=== PATIENT | male | born 1990 | race African-American/Black ===

== ENCOUNTER 2016-12-06 05:40 | Emergency (ER) | payer SELFPAY ==
[~2016-12-06] VITALS: Ht 172.7 cm; Wt 62.0 kg
[2016-12-06 05:44] VITALS: BP 155/82; PULSE 100; RESP 18; TEMP 98.2; O2SAT 97
[2016-12-06] MEDS ORDERED: DIPHTH/TETANUS/ACEL PERTUSSIS (BOOSTER) 0.5 ML VIAL/PFS IM ONE (06:00)
[2016-12-06] MEDS ORDERED: LIDOCAINE 1%/EPINEPHrine 1:100,000 SOLN 20 ML VIAL INFIL ONE (06:00)
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
--- NOTE | 2016-12-06 06:27 | PD ---
Physical Exam Date Seen by Provider: Dec 06, 2016 Time Seen by Provider: 06:26 Narrative For full history and physical examination please see previous provider's note. I was asked to repair the laceration to patient's right eyebrow. Data Data Last Documented VS Vital Signs Date Time Temp Pulse Resp B/P Pulse Ox O2 Delivery O2 Flow Rate FiO2 12/06/16 05:44 98.2 100 18 155/[address] Brain W/O Iv Contrast(Rout) (12/06/16 ) Ct Facial Bones W/O Iv Cont (12/06/16 ) Lidocai-Epi 1%-1:100,000 Inj (Xylocaine- (12/06/16 06:00) Ofri-Ali-Ycrqxx (Booster) Inj (Boostrix (12/06/16 06:00) MDM Supervised Visit with EFREN: Yes Procedures Procedure Narrative LACERATION LOCATION: Right eyebrow LENGTH: 1.5 centimeters NUMBER OF STITCHES/DENZEL: 6 stitches REPAIR: The area of the laceration was prepped with Betadine and sterilely draped. The laceration was infiltrated with 1% lidocaine with epi. The wound was copiously irrigated and explored without evidence of foreign body, tendon injury or neurovascular injury. The wound was closed using 5-0 Prolene. This was a 1 layer repair. A sterile dressing was applied. The patient was advised to keep the dressing clean and dry. Patient tolerated the procedure well. Scripts No Active Prescriptions or Reported Meds Barbara Saba Dec 06, 2016 06:27
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
[2016-12-06] MEDS ORDERED: IBUP-232 PO (08:26)
[2016-12-06] MEDS ORDERED: AMOX500C PO (08:26)
[2016-12-06 08:50] VITALS: BP 136/79
== END 2016-12-06 08:52 | disposition home or self-care (01) ==
LOC: NEPC 05:40
DX: S02.31XA Fracture of orbital floor, right side, initial encounter for closed fracture (principal); S01.111A Laceration without foreign body of right eyelid and periocular area, initial encounter; Y04.0XXA Assault by unarmed brawl or fight, initial encounter; Z23 Encounter for immunization
CPT/HCPCS: 12011; 70450; 70486; 90471; 90715

== ENCOUNTER 2016-12-13 14:06 | Emergency (ER) | payer SELFPAY ==
[~2016-12-13 14:06] MED LIST: AMOX500C PO; IBUP-232 PO
[2016-12-13 14:08] VITALS: BP 145/69; PULSE 103; RESP 12; TEMP 99.5; O2SAT 99
--- NOTE | 2016-12-13 14:50 | PD ---
Physical Exam Date Seen by Provider: Dec 13, 2016 Time Seen by Provider: 14:48 Data Data Last Documented VS Vital Signs Date Time Temp Pulse Resp B/P Pulse Ox O2 Delivery O2 Flow Rate FiO2 12/13/16 14:08 99.5 103 12 145/69 99 MDM Supervised Visit with EFREN: No Narrative Course 26 YO M requests suture removal of right eyebrow. Vitals reviewed. Seen in triage, awaiting bed placement. [place] Dec 13, 2016 14:50
--- NOTE | 2016-12-13 15:10 | PD ---
HPI Chief Complaint: Wound/Suture/Staple Re-Check Time Seen by Provider: 15:08 Travel History International Travel<30 days: No Contact w/Intl Traveler<30days: No Traveled to known affect area: No History of Present Illness HPI 26-year-old male presents to emergency department requesting stitches to be removed from his right eyebrow. Stitches to been in place since last week. Patient is unable to verify date. He denies fever, vomiting. Has no other medical complaints. No known allergies. No other modifying factors or associated signs and symptoms. PFSH Social History Alcohol Use: Yes Tobacco Use: Yes (1PPD) Substance Use: Yes (MARIJUANA) Allergies-Medications (Allergen,Severity, Reaction): Coded Allergies: No Known Allergies (Unverified , 12/13/16) Reported Meds & Prescriptions Reported Meds & Active Scripts Active Ibuprofen 600 Mg Tab 600 Mg PO Q6H PRN Amoxicillin 500 Mg Cap 500 Mg PO TID 10 Days Review of Systems Except as stated in HPI: all other systems reviewed are Neg Physical Exam Narrative GENERAL: Well-nourished, well-developed male patient, in no acute distress SKIN: Warm and dry. Laceration to right eyebrow is well approximated with sutures intact; areas without erythema, edema, drainage. No signs of infection. HEAD: Atraumatic. Normocephalic. EYES: Pupils equal and round. No scleral icterus. No injection or drainage. ENT: Mucosa pink and moist. Airway patent. NECK: Trachea midline. CARDIOVASCULAR: Regular rate. RESPIRATORY: No accessory muscle use. GASTROINTESTINAL: Flat. MUSCULOSKELETAL: No obvious deformities. No clubbing. No cyanosis. No edema. NEUROLOGICAL: Awake and alert. Oriented 3. No obvious cranial nerve deficits. Motor grossly within normal limits. Normal speech. PSYCHIATRIC: Appropriate mood and affect; insight and judgment normal. Data Data Last Documented VS Vital Signs Date Time Temp Pulse Resp B/P Pulse Ox O2 Delivery O2 Flow Rate FiO2 12/13/16 14:08 99.5 103 12 145/69 99 MDM Medical Decision Making Medical Screen Exam Complete: Yes Emergency Medical Condition: Yes Medical Record Reviewed: Yes Differential Diagnosis Suture removal, stable removal, wound recheck, medical clearance Narrative Course 26-year-old male here for removal of stitches to the right eyebrow. Wound is well approximated without signs of infection. Stitches removed. Patient tolerated well. Patient verbalizes understanding and agreement with treatment plan. Patient is medically cleared and stable for discharge. Discussed reasons to return to the emergency department. Instructed patient to follow up with primary care provider. Patient agrees with treatment plan. The patients vital signs are stable and the patient is stable for outpatient follow-up and treatment. Patient discharged home, stable and in no acute distress. Diagnosis Primary Impression: Encounter for removal of sutures Referrals: Primary Care Physician Patient Instructions: General Instructions, Stitches Removal (ED) Additional Instructions: Follow-up with primary care provider Return to the emergency department immediately with worsening of symptoms Med/Other Pt SpecificInfo: No Meds Exist/No RX given Disposition: 01 DISCHARGE HOME Condition: Stable Cathie Aguilar Dec 13, 2016 15:10
== END 2016-12-13 15:38 | disposition home or self-care (01) ==
LOC: NEPK 14:06
DX: Z48.02 Encounter for removal of sutures (principal); F17.200 Nicotine dependence, unspecified, uncomplicated; Z79.899 Other long term (current) drug therapy
CPT/HCPCS: 99281